=== PATIENT | female | born 1980 | race Caucasian/White ===

== ENCOUNTER 2017-06-03 10:28 | Emergency (ER) | payer OTHER ==
[~2017-06-03] VITALS: Ht 165.1 cm; Wt 50.3 kg
--- NOTE | 2017-06-03 10:40 | NUR ---
Dr Mon at the bedside for eval and exam.
--- NOTE | 2017-06-03 10:52 | NUR ---
Patient discharged to home in stable conditon. Written and verbal after care instructions given. Patient verbalizes understanding of instructions.
[2017-06-03 10:53] VITALS: BP 129/72
== END 2017-06-03 10:54 | disposition home or self-care (01) ==
LOC: ER 10:32
DX: L25.9 Unspecified contact dermatitis, unspecified cause (principal)
CPT/HCPCS: 99283; A4663